=== PATIENT | male | born 1955 | race American Indian/Alaskan Native ===

== ENCOUNTER 2017-10-02 12:44 | Emergency (ER) | payer OTHER ==
[2017-10-02 12:54] VITALS: BP 158/78; PULSE 97; TEMP 98.7; O2SAT 100
[2017-10-02] MEDS ORDERED: Tmp-Smz 800 mg-160 mg DS Tab PO STA (13:34)
--- NOTE | 2017-10-02 13:36 | C.PDOC ---
History Of Present Illness 61 y/o male presents to the ED complaining of left foot pain and swelling for the past 2 days. Patient states he may have bumped into something, but is unsure if that's the cause. Patient denies associated fever, chills, open wounds, calf pain/swelling, SOB, chest pain, palpitations. Time Seen by Provider: 10/02/17 13:02 Chief Complaint (Nursing): Lower Extremity Problem/Injury History Per: Patient History/Exam Limitations: no limitations Onset/Duration Of Symptoms: Days Current Symptoms Are (Timing): Still Present Severity: Mild Past Medical History Reviewed: Historical Data, Nursing Documentation, Vital Signs Vital Signs: Last Vital Signs Temp 98.7 F 10/02/17 12:52 Pulse 97 H 10/02/17 12:52 Resp 18 10/02/17 13:52 BP 158/78 H 10/02/17 12:52 Pulse Ox 100 10/02/17 16:45 - Medical History PMH: Diabetes, HTN Other Surgeries: Prostate surgery Family History: States: No Known Family Hx - Social History Hx Alcohol Use: No Hx Substance Use: No - Immunization History Hx Tetanus Toxoid Vaccination: No Hx Influenza Vaccination: No Hx Pneumococcal Vaccination: No Review Of Systems Constitutional: Negative for: Fever, Chills Cardiovascular: Negative for: Chest Pain, Palpitations Respiratory: Negative for: Shortness of Breath Musculoskeletal: Positive for: Foot Pain. Negative for: Other (calf pain) Skin: Negative for: Lesions Physical Exam - Physical Exam Appears: Well, Non-toxic, No Acute Distress Skin: Warm, Dry, Other (see extremity exam) Eye(s): bilateral: Normal Inspection Oral Mucosa: Moist Neck: Supple Cardiovascular: Rhythm Regular Respiratory: Normal Breath Sounds, No Rales, No Rhonchi, No Wheezing Extremity: Normal ROM (all digits/ankle), No Calf Tenderness (or calf swelling) , Capillary Refill (< 2 sec all digits ), No Deformity, Swelling (lateral aspect of left foot appears mildly swollen and erythematous, + warm to touch, no swelling/TTP at MTP joint), No Other (open wounds) Pulses: Left Dorsalis Pedis: Normal, Right Dorsalis Pedis: Normal Neurological/Psych: Oriented x3, Normal Sensation Gait: Steady ED Course And Treatment O2 Sat by Pulse Oximetry: 100 (RA) Pulse Ox Interpretation: Normal - Other Rad x-ray left foot X-Ray: Read By Radiologist Interpretation: FINDINGS: BONES: Normal. No fracture. JOINTS: Normal. SOFT TISSUES: Normal. OTHER FINDINGS: None. IMPRESSION: Normal left foot radiographs. Progress Note: Xray of left foot ordered and reviewed. Patient given PO Motrin , as well as PO Bactrim and Kelfex (suspect cellulitis). Xray neg for acute bony injury. Patient given Rxs for Keflex and Bactrim, and was instructed to follow up with PMD/clinic in 1-2 days. He understands he should monitor the area for worsening of pain/erythema/swelling, and return to ED immediately if symptoms worsen. Medical Decision Making Medical Decision Making: differential diagnoses considered: cellulitis, gout, fracture/sprain Disposition Counseled Patient/Family Regarding: Studies Performed, Diagnosis, Need For Followup, Rx Given - Disposition Referrals: Chaitanya Borden [Staff Provider] - Disposition: HOME/ ROUTINE Disposition Time: 13:35 Condition: STABLE Additional Instructions: FOLLOW UP WITH YOUR DOCTOR IN 1-2 DAYS USE MEDICATIONS DIRECTED RETURN TO ER IF SYMPTOMS PERSIST OR WORSEN Prescriptions: Cephalexin [Keflex] 500 mg PO BID #14 capsule Ibuprofen [Motrin Tab] 600 mg PO Q6 PRN #30 tab PRN Reason: fever/pain Sulfamethoxazole/Trimethoprim [Bactrim DS 800 mg-160 mg] 1 tab PO BID #14 tab Instructions: Cellulitis (Skin Infection), Adult (DC) Forms: [employer] ([employer]) Print Language: MALAY - Clinical Impression Clinical Impression: Cellulitis of left foot - Scribe Statement The provider has reviewed the documentation as recorded by the Scribe (Ingrid Bird) Provider Attestation: All medical record entries made by the Nancyibkatharine were at my direction and personally dictated by me. I have reviewed the chart and agree that the record accurately reflects my personal performance of the history, physical exam, medical decision making, and the department course for this patient. I have also personally directed, reviewed, and agree with the discharge instructions and disposition.
--- NOTE | 2017-10-02 13:40 | RAD ---
PROCEDURE: Left Foot Radiographs. HISTORY: left foot pain COMPARISON: None. FINDINGS: BONES: Normal. No fracture. JOINTS: Normal. SOFT TISSUES: Normal. OTHER FINDINGS: None. IMPRESSION: Normal left foot radiographs.
[2017-10-02] MEDS ORDERED: Tmp-Smz 800 mg-160 mg DS Tab ONE (13:48)
[2017-10-02 13:54] VITALS: RESP 18
== END 2017-10-02 13:54 | disposition home or self-care (01) ==
LOC: C.ER 12:44
DX: L03.116 Cellulitis of left lower limb (principal)